=== PATIENT | female | born 1990 | race Hispanic/Latino ===

== ENCOUNTER 2018-01-27 17:36 | Emergency (ER) | payer OTHER ==
[2018-01-27] MEDS ORDERED: ACETAMINOPHEN 325 MG TAB ONE (17:46)
== END 2018-01-27 18:42 | disposition home or self-care (01) ==
LOC: EDH 17:36
DX: S93.492A Sprain of other ligament of left ankle, initial encounter (principal); W18.39XA Other fall on same level, initial encounter; Y93.89 Activity, other specified; Y92.098 Other place in other non-institutional residence as the place of occurrence of the external cause; Y99.8 Other external cause status
CPT/HCPCS: 73610

== ENCOUNTER 2021-06-21 06:50 | Inpatient (IN) | payer MEDICAID, OTHER ==
[~2021-06-21] VITALS: Ht 160 cm; Wt 80.7 kg
[2021-06-21 07:14] LABS: BILIRUBIN,URINE Negative (NEGATIVE); COLOR,URINE Dark Yellow (YELLOW); GLUCOSE, URINE (UA) Negative (NEGATIVE); KETONES,URINE 40 mg/dL (NEGATIVE); LEUKOCYTE ESTERASE ,URINE Small (NEGATIVE); NITRATE,URINE Negative (NEGATIVE); OCCULT BLOOD,URINE Negative (NEGATIVE); PH,URINE 8.5 (5.0-8.0); PROTEIN,URINE POS 1+ mg/dL (NEGATIVE)
[2021-06-21 07:17] LABS: BASOPHILS % (AUTO) 0.3 % (0.0-5.0); HEMATOCRIT 38.6 % (36-48); LYMPHOCYTES % (AUTO) 12.2 % (21.0-51.0); MEAN CORPUSCULAR HGB CONC 34.7 g/dL (32.0-36.0); MEAN CORPUSCULAR VOLUME 92.1 fL (79-99); MONOCYTES % (AUTO) 5.4 % (3.0-13.0); NEUTROPHILS % (AUTO) 81.8 % (40.0-77.0); PLATELET COUNT (AUTO) 298 K/uL (130-400); RED BLOOD CELL COUNT(AUTO) 4.19 MIL/uL (4.00-5.50); RED CELL DISTRIBUTION WIDTH 12.9 % (11.0-15.5); WHITE BLOOD COUNT (AUTO) 13.1 K/uL (4.8-10.8)
[2021-06-21 07:18] LABS: APPEARANCE,URINE CLEAR (CLEAR)
[2021-06-21] MEDS ORDERED: ONDANSETRON 4MG INJ IVP ONE (07:30)
[2021-06-21] MEDS ORDERED: 0.9%NACL 1000ML 1,000 ML IV ONE (07:30)
[2021-06-21] MEDS ORDERED: FENTANYL CITRATE PF 50 MCG/1 ML 2ML VIAL IVP ONE (07:30)
[2021-06-21 07:33] LABS: ALANINE AMINOTRANSFERASE 38 U/L (12-78); ALBUMIN 4.3 g/dL (3.5-5.0); ASPARTATE AMINOTRANSFERASE 19 U/L (10-37); BILIRUBIN,TOTAL 0.6 mg/dL (0.2-1.0); CARBON DIOXIDE 27 mmol/L (21-32); CHLORIDE 100 mmol/L (101-111); CREATININE 0.7 mg/dL (0.5-1.5); GLOMERULAR FILTR. RATE CALC 102 mL/min (>60); GLUCOSE,RANDOM 157 mg/dL (70-105); POTASSIUM 3.7 mmol/L (3.5-5.1); SODIUM SERUM 135 mmol/L (136-145); TOTAL PROTEIN, SERUM 8.5 g/dL (6.0-8.3); UREA NITROGEN, BLOOD 10 mg/dL (7-18)
[2021-06-21 07:37] LABS: BACTERIA,URINE Rare /HPF (None Seen); MUCUS,URINE Few LPF (None Seen); RBC,URINE 0-1 /HPF (0-1); SQUAMOUS EPITHELIAL CELL,UR Moderate /HPF (0-2)
[2021-06-21 07:38] LABS: HCG,QUAL RESULT NEGATIVE (NEGATIVE)
[2021-06-21 07:39] LABS: LIPASE < 50 U/L (114-286)
[2021-06-21] MEDS ORDERED: KETOROLAC 15MG/ML VIAL (15MG/ML) ONE (08:05)
[2021-06-21] MEDS ORDERED: KETOROLAC 15MG/ML VIAL (15MG/ML) IV ONE (08:30)
[2021-06-21] MEDS ORDERED: 0.9%NACL 50ML 50 ML IV ONE (10:17)
[2021-06-21] MEDS: ZOSYN 3.375GM +NS 50ML IV SCH ×2 (10:19→18:06)
[2021-06-21 10:58] LABS: HEMOGLOBIN A1C 5.4 % (4.0-6.0)
[2021-06-21] MEDS: LACTATED RINGERS 1000ML 1,000 ML IV SCH (12:00)
[2021-06-21 13:35] VITALS: BP 117/68
[2021-06-21 16:20] VITALS: BP 118/78
[2021-06-21] MEDS: MORPHINE 2 MG SYG IVP PRN ×2 (16:28→22:05)
[2021-06-21 19:55] VITALS: BP 127/81
[2021-06-21 23:20] VITALS: BP 123/72
[2021-06-22] VITALS (24 sets, daily range): BP systolic 104–129; BP diastolic 59–81
[2021-06-22] MEDS: ZOSYN 3.375GM +NS 50ML IV SCH ×5 (02:41→18:03)
[2021-06-22] MEDS: MORPHINE 2 MG SYG IVP PRN (05:32)
[2021-06-22] MEDS: LACTATED RINGERS 1000ML 1,000 ML IV SCH ×3 (05:32→18:03)
[2021-06-22 06:04] LABS: BASOPHILS % (AUTO) 0.2 % (0.0-5.0); HEMATOCRIT 34.8 % (36-48); LYMPHOCYTES % (AUTO) 28.3 % (21.0-51.0); MEAN CORPUSCULAR HEMOGLOBIN 30.5 pg (27.0-33.0); MEAN CORPUSCULAR HGB CONC 33.6 g/dL (32.0-36.0); MEAN CORPUSCULAR VOLUME 90.9 fL (79-99); MONOCYTES % (AUTO) 10.3 % (3.0-13.0); NEUTROPHILS % (AUTO) 59.8 % (40.0-77.0); PLATELET COUNT (AUTO) 249 K/uL (130-400); RED BLOOD CELL COUNT(AUTO) 3.83 MIL/uL (4.00-5.50); RED CELL DISTRIBUTION WIDTH 13.2 % (11.0-15.5); WHITE BLOOD COUNT (AUTO) 8.2 K/uL (4.8-10.8)
[2021-06-22 06:52] LABS: ALBUMIN 3.5 g/dL (3.5-5.0); BILIRUBIN,TOTAL 0.9 mg/dL (0.2-1.0); CREATININE 0.7 mg/dL (0.5-1.5); POTASSIUM 3.6 mmol/L (3.5-5.1); TOTAL PROTEIN, SERUM 7.3 g/dL (6.0-8.3)
[2021-06-22] MEDS ORDERED: SUCCINYLCHOLINE CHLORIDE 20 MG/ML 10 ML VIAL ONE (09:46)
[2021-06-22] MEDS ORDERED: LIDOCAINE PF 100MG/5ML (2%) SYRINGE 5ML ONE (09:46)
[2021-06-22] MEDS ORDERED: ROCURONIUM 10MG/1ML SYR 10 MG/ML ML ONE (09:47)
[2021-06-22] MEDS ORDERED: MIDAZOLAM HCL 1 MG/ML 2ML VIAL ONE (09:47)
[2021-06-22] MEDS ORDERED: PROPOFOL 10 MG/ML 20ML VIAL IV ONE (09:47)
[2021-06-22] MEDS ORDERED: FENTANYL CITRATE PF 50 MCG/1 ML 2ML VIAL ONE ×2 (09:47→11:07)
[2021-06-22] MEDS ORDERED: DEXAMETHASONE SOD PHOSPHATE 4 MG/ML 1ML VIAL ONE (10:11)
[2021-06-22] MEDS ORDERED: ONDANSETRON 4MG INJ ONE (10:11)
[2021-06-22] MEDS ORDERED: PHENYLEPHRINE HCL 10 MG/ML 1ML VIAL IV ONE (10:12)
[2021-06-22] MEDS ORDERED: 0.9%NACL 10ML VIAL ONE (10:12)
[2021-06-22] MEDS ORDERED: BUPIVACAINE/PF 0.5% 30ML VIAL ONE (10:17)
[2021-06-22] MEDS ORDERED: NEOSTIGMINE 5MG/5ML SYR IV ONE (10:59)
[2021-06-22] MEDS ORDERED: GLYCOPYRROLATE 1 MG/5 ML SYRINGE ONE (10:59)
[2021-06-22] MEDS ORDERED: KETOROLAC 15MG/ML VIAL (15MG/ML) ONE (11:44)
[2021-06-22] MEDS ORDERED: OXYCODONE/ACETAMIN 5/325MG TAB PO PRN (13:30)
[2021-06-22] MEDS ORDERED: ONDANSETRON 4MG INJ IVP PRN (13:30)
[2021-06-22] MEDS: FAMOTIDINE 20MG VIAL IV SCH (20:19)
[2021-06-23] MEDS: ZOSYN 3.375GM +NS 50ML IV SCH (02:32)
[2021-06-23 03:50] VITALS: BP 120/76
[2021-06-23 06:49] LABS: HEMATOCRIT 31.3 % (36-48); MEAN CORPUSCULAR HEMOGLOBIN 31.3 pg (27.0-33.0); MEAN CORPUSCULAR HGB CONC 33.9 g/dL (32.0-36.0); MEAN CORPUSCULAR VOLUME 92.3 fL (79-99); RED BLOOD CELL COUNT(AUTO) 3.39 MIL/uL (4.00-5.50); WHITE BLOOD COUNT (AUTO) 10.5 K/uL (4.8-10.8)
[2021-06-23 07:25] VITALS: BP 116/71
[2021-06-23 07:55] LABS: CREATININE 0.7 mg/dL (0.5-1.5); POTASSIUM 3.4 mmol/L (3.5-5.1)
[2021-06-23] MEDS: FAMOTIDINE 20MG VIAL IV SCH (09:37)
[2021-06-23] MEDS ORDERED: POLY17PO4 PO (10:17)
[2021-06-23] MEDS ORDERED: AMOX-429 PO (10:18)
[2021-06-23] MEDS ORDERED: ACET1TAB25 PO (10:19)
[2021-06-23] MEDS ORDERED: ONDA22I PO (10:34)
[2021-06-23 11:22] VITALS: BP 119/75
== END 2021-06-23 11:30 | disposition home or self-care (01) | DRG 419 ==
LOC: EDH 06:50 → EDHIP 06:51 → OBSVTOIN 06:51 → INTOOBSV 06:51 → WSH 13:35
PROVIDERS: ADMIT Hospitalist; ATTEND Hospitalist
PROC: 0FT44ZZ Resection of Gallbladder, Percutaneous Endoscopic Approach (ICD-10-PCS; principal; 2021-06-22 10:03)
DX: K80.20 Calculus of gallbladder without cholecystitis without obstruction (principal); E66.9 Obesity, unspecified; Z68.31 Body mass index [BMI] 31.0-31.9, adult; K82.8 Other specified diseases of gallbladder; Z20.822 Contact with and (suspected) exposure to COVID-19
CPT/HCPCS: 36415; 74181; 76705; 80048; 80053; 81001; 81025; 83036; 83690; 85025; 85027; 87635; G0378; J0330; J1100; J1885; J2001; J2250; J2370; J2405; J2543; J2704; J2710; J3010; J3490; J7030; J7120

== ENCOUNTER 2025-05-05 09:21 | Emergency (ER) | payer MEDICAID ==
[~2025-05-05] VITALS: Ht 160 cm; Wt 81.6 kg
[~2025-05-05 09:21] MED LIST: ACET-2079 PO; AMOX-429 PO; ONDA22I PO; POLY17PO4 PO
[2025-05-05 09:54] LABS: APPEARANCE,URINE CLEAR (CLEAR); GLUCOSE, URINE (UA) NEGATIVE (NEGATIVE); LEUKOCYTE ESTERASE ,URINE NEGATIVE Leu/uL (NEGATIVE); NITRATE,URINE NEGATIVE (NEGATIVE); OCCULT BLOOD,URINE LARGE (NEGATIVE)
[2025-05-05 10:00] LABS: ADD UA MICROSCOPIC YES
[2025-05-05 10:18] LABS: SQUAMOUS EPITHELIAL CELL,UR FEW /HPF (0-2)
[2025-05-05 10:56] LABS: IMMATURE GRANULOCYTE ABSOLUTE 0.02 K/uL (0-1); NUCLEATED RED BLOOD CELLS 0.0 % (0.0-0.19); PLATELET COUNT (AUTO) 321 K/uL (130-400); RED BLOOD CELL COUNT(AUTO) 4.04 MIL/uL (4.00-5.50); RED CELL DISTRIBUTION WIDTH 12.9 % (11.0-15.5); WHITE BLOOD COUNT (AUTO) 4.8 K/uL (4.8-10.8)
[2025-05-05 11:00] VITALS: TEMP 98.4
--- NOTE | 2025-05-05 11:22 | NUR ---
PT JUST NOW PLACED IN MY ED BED 14
--- NOTE | 2025-05-05 11:30 | NUR ---
PT PLACED IN A HOSPITAL GOWN
[2025-05-05 11:35] LABS: CREATININE 0.7 mg/dL (0.5-1.0); GLOMERULAR FILTR. RATE CALC 114.0 mL/min (>90); GLUCOSE,RANDOM 123.0 mg/dL (70-105); SODIUM SERUM 136.0 mmol/L (136-145); UREA NITROGEN, BLOOD 8.0 mg/dL (7-18)
[2025-05-05 11:41] LABS: ASPARTATE AMINOTRANSFERASE 21.0 U/L (10-37); TOTAL PROTEIN, SERUM 7.7 g/dL (6.0-8.3)
[2025-05-05] MEDS ORDERED: DICY20TA2 PO (11:52)
[2025-05-05] MEDS ORDERED: FAMO-136 PO (11:52)
--- NOTE | 2025-05-05 11:53 | ERN ---
ED Note History of Present Illness Stated Complaint: ABDOMINAL PAIN Chief Complaint: Abdominal Pain Time Seen by MD: 10:09 Time Seen by Midlevel: 10:16 Dictation: [age] year old female with no past medical history surgical history of cholecystectomy coming in complaining of generalized abdominal pain onset last night. Patient states she has a some chicken tacos. Patient denies having any fever, vomiting. Patient states she has had loose stool 3 times, nonbloody. Allergies: Coded Allergies: No Known Drug Allergies (Verified Allergy, 11/15/11) Home Meds Reported Medications Ondansetron HCl (Zofran) 2 Mg/Ml Inj, 4 MG PO TIDP PRN for NAUSEA/VOMITING, ML 06/23/21 Acetaminophen with Codeine (Acetaminophen-Cod #3 Tablet) 1 Each Tablet, 1 TAB PO Q6H PRN for PAIN LEVEL 4 TO 6, #24 TAB 06/23/21 Amoxicillin/Potassium Clav (Augmentin 875-125 Tablet) 1 Each Tablet, 1 EACH PO BID for 7 Days, TAB 06/23/21 Polyethylene Glycol 3350 (Miralax) 17 Gm Powd.pack, 17 GM PO DAILY, #10 06/23/21 Past Medical History Past Medical History: No Pertinent History Surgical History: None Social History: Negative, Lives with family History: Not Applicable Review of System Dictation Constitutional: Negative for fever,chills, and weight loss Eyes: Negative for injury, pain,redness, and discharge ENT: Negative for injury,pain or swelling Cardiovascular: Negative for chest pain, palpitations, and edema Respiratory: Negative for shortness of breath, cough, and wheezing, Abdomen/GI: Generalized abdominal pain with the diarrhea Back: Negative for injury and pain : Negative for injury, bleeding and discharge MS/Extremity: Negative for injury and deformity Skin: Negative for rash, and discoloration Neuro: Negative for headache, weakness, numbness, tingling, and seizure Psych: Negative for suicide ideation, homicidal ideation, and hallucinations Review of Systems: was completed Initial Vital Sign VS Vital Signs Date Time Temp Pulse Resp B/P (MAP) Pulse Ox O2 Delivery O2 Flow Rate FiO2 05/05/25 09:22 97.9 77 16 143/89 98 Room Air 05/05/25 11:00 0 21 Physical Exam Dictation General: awake, alert, NAD Head/Face: Normocephalic, atraumatic Eyes: PERRL, EOMI, vision at baseline ENT: oral cavity clear, TMs clear, no signs of infection Neck: Trachea midline, supple, no nuchal rigidity Cardiovascular: RRR, normal S1/S2, No MRGs, no JVD Respiratory: CTAB, no respiratory distress, No rales or wheezes Abdomen: Soft, non-tender, non-distended, normal bowel sounds, no guarding or rebound. Skin: Warm, dry, normal turgor, no rash MS/Extremity: Pulses equal, no cyanosis, neurovascular intact, FROM Neuro: COAx4, GCS 15, strength 5/5, CN 2-12 intact, normal cerebellar exam, normal gait, Psych: Normal behavior, mood, and affect normal Results (Laboratory/Radiology) Laboratory/Radiology Laboratory Tests Test 05/05/25 09:30 05/05/25 10:52 Urine Color LIGHT-YELLOW (YELLOW) Urine Appearance CLEAR (CLEAR) Urine pH 6.0 (5.0-8.0) Urine Specific Maribel 1.014 (1.001-1.031) Urine Protein NEGATIVE mg/dL (NEGATIVE) Urine Glucose (UA) NEGATIVE mg/dL (NEGATIVE) Urine Ketones NEGATIVE mg/dL (NEGATIVE) Urine Occult Blood LARGE (NEGATIVE) H Urine Nitrate NEGATIVE (NEGATIVE) Urine Bilirubin NEGATIVE mg/dL (NEGATIVE) Urine Urobilinogen 0.2 mg/dL (0.2-1.0) Urine Leukocyte Esterase NEGATIVE Yony/uL Urine RBC 51-100 /HPF (0-1) H Urine WBC 6-10 /HPF (0-1) H Urine Squamous Epithelial Cells FEW /HPF (0-2) Urine Bacteria None /HPF (None Seen) White Blood Count 4.8 K/uL (4.8-10.8) Red Blood Count 4.04 MIL/uL (4.00-5.50) Hemoglobin 13.2 g/dL (12.0-16.0) Hematocrit 37.7 % (36-48) Mean Corpuscular Volume 93.3 fL (79-99) Mean Corpuscular Hemoglobin 32.7 pg (27.0-33.0) Mean Corpuscular Hemoglobin Concent 35.0 g/dL (32.0-36.0) Red Cell Distribution Width 12.9 % (11.0-15.5) Platelet Count 321 K/uL (130-400) Mean Platelet Volume 10.0 fL (7.5-10.5) Immature Granulocyte % (Auto) 0.4 % (0-1) Neutrophils (%) (Auto) 59.8 % (40.0-77.0) Lymphocytes (%) (Auto) 28.5 % (21.0-51.0) Monocytes (%) (Auto) 9.6 % (3.0-13.0) Eosinophils (%) (Auto) 1.3 % (0.0-8.0) Basophils (%) (Auto) 0.4 % (0.0-5.0) Neutrophils # (Auto) 2.9 K/uL (1.8-7.7) Lymphocytes # (Auto) 1.4 K/uL (1.0-4.8) Monocytes # (Auto) 0.5 K/uL (0.1-1.0) Eosinophils # (Auto) 0.06 K/uL (0.00-0.70) Basophils # (Auto) 0.02 K/uL (0.00-0.20) Absolute Immature Granulocyte (auto 0.02 K/uL (0-1) Nucleated Red Blood Cells 0.0 % (0.0-0.19) Sodium Level 136 mmol/L (136-145) Potassium Level 4.0 mmol/L (3.5-5.1) Chloride Level 102 mmol/L (101-111) Carbon Dioxide Level 25 mmol/L (21-32) Blood Urea Nitrogen 8 mg/dL (7-18) Creatinine 0.7 mg/dL (0.5-1.0) Glomerular Filtration Rate Calc 114 mL/min (>90) Random Glucose 123 mg/dL (70-105) H Total Calcium 8.7 mg/dL (8.5-10.1) Total Bilirubin 0.8 mg/dL (0.2-1.0) Direct Bilirubin 0.2 mg/dL (0.0-0.3) Aspartate Amino Transf (AST/SGOT) 21 U/L (10-37) Alanine Aminotransferase (ALT/SGPT) 32 U/L (12-78) Alkaline Phosphatase 71 U/L (50-136) Total Protein 7.7 g/dL (6.0-8.3) Albumin 3.7 g/dL (3.5-5.0) Lipase 18 U/L (16-77) Labs Reviewed?: Yes ED Course ED Course Orders Procedure Category Date Status Time Urinalysis Profile LAB 05/05/25 Complete 09:29 Culture Urine DEMARCO 05/05/25 In Process 10:23 Cbc With Differential LAB 05/05/25 Complete 10:40 Basic Metabolic Panel LAB 05/05/25 Complete 10:40 Lipase LAB 05/05/25 Complete 10:40 Hepatic Function Panel LAB 05/05/25 Complete 10:40 0.9%Nacl 1000ml (Ns PHA 05/05/25 Complete 1000ml) 10:40 Ondansetron 4mg Inj PHA 05/05/25 Complete (Zofran 4mg Inj) 11:00 Famotidine 20mg Vial PHA 05/05/25 Complete (Pepcid 20mg Vial) 11:00 Lidocaine Hcl 2% PHA 05/05/25 Complete Viscous (Lidocaine Hcl 11:00 Mag/Alum/Simeth 30ml PHA 05/05/25 Complete (Maalox Plus 30ml) 11:00 Dicyclomine Hcl PHA 05/05/25 Complete (Bentyl 10mg/5ml 11:00 Current Medications Medications (Trade) Dose Ordered Sig/Anthony Route PRN Reason Start Time Stop Time Status Last Admin Dose Admin Al Hydroxide/Mg Hydroxide (MAALox PLUS 30ML) 30 ml ONCE ONCE PO 05/05/25 11:00 05/05/25 11:01 DC Dicyclomine HCl (Bentyl 10mg/5ml Syrup) 10 mg ONCE ONCE PO 05/05/25 11:00 05/05/25 11:01 DC Famotidine (Pepcid 20mg Vial) 20 mg ONCE ONCE IV 05/05/25 11:00 05/05/25 11:01 DC Lidocaine HCl (Lidocaine HCl 2% Viscous) 10 ml ONCE ONCE PO 05/05/25 11:00 05/05/25 11:01 DC Ondansetron HCl (zoFRAN 4MG INJ) 4 mg ONCE ONCE IVP 05/05/25 11:00 05/05/25 11:01 DC Sodium Chloride 1,000 ml @ 1,000 mls/hr Q1H STAT IV 05/05/25 10:40 05/05/25 11:39 DC Vital Signs Date Time Temp Pulse Resp B/P (MAP) Pulse Ox O2 Delivery O2 Flow Rate FiO2 05/05/25 11:00 98.4 83 20 121/85 83 Room Air* 0 21 05/05/25 09:22 97.9 77 16 143/89 98 Room Air Medical Decision Making [facility] MDM: The patient that is 35-year-old female with no past medical or surgical hi story who presents with the acute onset lower abdominal discomfort associated with generalized joint aches and three episodes of nonbloody diarrhea patient getting last night. Patient has started after eating chicken tacos, raising concern for a self-limited gastrointestinal illness or food-borne exposure. She denies fever, chills, nausea, vomiting, hematochezia, melena dysuria, urinary frequency, vaginal discharge or pelvic pain. LMP is 05/04/2025. Patient states he isn't suspected. On evaluation the patient has a hemodynamically stable in no acute distress. Abdomen exam was benign without any focal tenderness guarding rebound or peritoneal signs. There is no cholesterol verbal angle tenderness. No joint swelling erythema or decreased range of motion noted. Laboratory evaluation including CBC and CMP urinalysis within normal limits. There was no leukocytosis no transaminitis with normal real function. No evidence of UTI. Given the reassuring exam and laboratory findings advanced imaging was not indicated at this time. Differential diagnosis: Pancreatitis, gastroenteritis, gastritis Rationale: Tests considered and ordered secondary to shared decision making include: Previous outside records reviewed: Old ER visits. Risk of complication and/or morbidity or mortality of patient management: None Medications-Per medication reconciliation Need for hospitalization: Patient does not meet criteria for hospitalization. Need for emergency major/minor surgery: No There are no social concerns with this patient. Prescription drug management Prescriptions will include symptomatic care Patient's prior external medical records from other ER visits were reviewed by me as indicated. Prior testing and results from previous visits were reviewed. Prior tests were taken into account with medical decision making and resource utilization, independent historian/historians were used to obtain complete medical history. I independently interpreted the test that were performed, results were reviewed by me and considered findings on radiology if ordered. Medical management and examination interpretation discussions were had by me with other qualified healthcare professionals as indicated for the patient's care. DX & DISP Disposition: Discharge Departure Impression: Primary Impression: Gastroenteritis Additional Impression: Diarrhea Condition: Stable Scripts Famotidine (Pepcid) 20 Mg Tablet 1 TAB PO BID for 30 Days, #60 TAB 0 Refills Prov: ISAURA GTZ CNP 05/05/25 Dicyclomine HCl (Bentyl) 20 Mg Tab 1 TAB PO BID for irritable bowel symptoms for 5 Days, #10 TAB 0 Refills Prov: ISAURA GTZ CNP 05/05/25 Additional Instructions: Hydrated, avoid any spicy, greasy, fatty foods. The more than likely have a viral stomach infection. This can last anywhere from 7-10 days. Follow up with your primary care provider. If you are unable to keep any fluids down return to the hospital. Referrals: SELF,REFERRAL (PCP) Time of Disposition: 11:51 I have reviewed the case, and I agree with, Diagnosis and Plan ISAURA GTZ CNP May 05, 2025 11:53
[2025-05-05] MEDS: FAMOTIDINE 20MG VIAL IV ONE (11:54)
[2025-05-05] MEDS: 0.9%NACL 1000ML 1,000 ML IV STA (11:54)
[2025-05-05] MEDS: MAG/ALUM/SIMETH 30 ML UDCUP PO ONE (11:54)
[2025-05-05] MEDS: DICYCLOMINE HCL 10 MG/5 ML ML PO ONE (11:54)
[2025-05-05] MEDS: LIDOCAINE HCL 2% VISCOUS 15 ML UDCUP PO ONE (11:54)
[2025-05-05 13:02] VITALS: BP 115/79; PULSE 63; RESP 15; O2SAT 99
== END 2025-05-05 13:25 | disposition home or self-care (01) ==
LOC: EDH 09:21
DX: K52.9 Noninfective gastroenteritis and colitis, unspecified (principal)
CPT/HCPCS: 99284; 96374; 96375; 96361; 80076; 80048; 83690; 85025; 87086; 81001; 36415; J1308; J7030; J2405